=== PATIENT | female | born 1990 | race Two or more races ===

== ENCOUNTER 2016-10-11 04:23 | Inpatient (IN) | payer MEDICAID ==
[2016-10-18] MEDS ORDERED: LACTATED RINGERS 1,000 ML IV PRN (10:08)
[2016-10-18] MEDS ORDERED: DINOPROSTONE 10 MG SUP VG ONE (10:08)
[2016-10-18] MEDS ORDERED: OXYTOCIN IN LR 500 ML IV ONE ×2 (10:08→10:20)
[2016-10-18] MEDS ORDERED: LIDOCAINE 1% (PRES FREE) 30 ML VIAL ONE (10:19)
[2016-10-18] MEDS ORDERED: MINERAL OIL 25 ML BOT ONE (10:19)
[2016-10-18] MEDS ORDERED: IV START KIT ONE (10:19)
[2016-10-18] MEDS ORDERED: OXYTOCIN 10 UNITS/ML VIAL ONE (10:19)
[2016-10-18] MEDS ORDERED: LACTATED RINGERS 1,000 ML ONE (10:19)
[2016-10-18] MEDS ORDERED: LIDOCAINE Viscous 2% 15 ML UDCUP ONE (10:20)
[2016-10-18] MEDS ORDERED: PUMP TUBING ONE (10:20)
[2016-10-18 11:12] LABS: HEMATOCRIT 36.6 % (37.0-47.0); HEMOGLOBIN 12.6 gm/l (12.0-16.0); MEAN CELL VOLUME 80.8 fl (81.0-99.0); MEAN CORPUSCULAR HEMOGLOBIN 27.8 pg (27.0-31.0); MEAN CORPUSCULAR HGB CONC 34.4 g/dl (33.0-37.0); RED CELL DISTRIBUTION WIDTH 13.3 % (11.5-14.5)
[2016-10-18 11:50] VITALS: BMI 26.2
--- NOTE | 2016-10-18 12:31 | PCMAN ---
OB Admission Note - History : 1 Term: 0 : 0 Abortions (S&E): 0 Livin EDC:: 10/11/16 Gestational Age (weeks): 41 Days (#/7): 0 Admit Cervical Dilation:: 1.5 Admit Cervical Effacement (%):: 50 Admit Station:: -3 Admit Presentaton:: vertex Membrane Status: Intact Contractions: Yes Contraction Frequency:: irreg, doesn't feel them Heart Rate:: 135 Status:: Cat I Summary of Course:: 26 yo G1 at 41 0/7 wks here for post dates IOL PNC: started PNC at 10 wks. Dated by 13 wk u/s, c/w 19 and 33 wk u/s. Course notable for S<D, but 33 wk u/s normal 53rd %ile. Had some anemia which improved w Fe. OBHx: n/a PMH: Childhood varicella PSH: none SocHx: neg for tob/etoh/drug use FOB neg for tob/etoh/drug use Immuniz: TdaP 07/25/16 Flu 07/25/16 PainMgmt: considering epidural Feeding: Plans BF BCM: plans Nexplanon - Labs Blood Type: A (+) positive (ab neg) Hct/Hgb:: 11.6 Rubella Status: Immune GBS Status: Negative Abnormal Labs: None Other Labs:: HIV NR HBsAg NR Syphilis neg GC neg Chlam neg Quad normal x 3 - Review of Systems noncontributory - Physical Exam General: Afebrile, No Acute Distress Psych/Mental Status: Mood/Affect Appropriate, Judgment/Insight Intact Neurological: Grossly Intact, Alert, Normal Speech HEENT: Atraumatic, Mucous membr. moist/pink Lungs: Clear to Auscultation Bilaterally Cardiovascular: Regular Rate and Rhythm Genitourinary: Normal Female Genitalia Extremities: Full ROM, No Edema DTR: Bicep (L): 2+ (Brisk, Normal), Bicep (R): 2+ (Brisk, Normal) Skin: Normal Color, Warm, Dry, Intact - Problems (1) Post-dates Qualifiers: Post-term type: 40-42 weeks gestation Qualifier Code: (O48.0 ) Post-term Status: Acute Code: O48.0 Assessment/Plan: 26 yo G1 at 41 0/7 wks Admit for IOL Cervical ripening w ceridil, afterwards if favorable will start pit Pain Mgmt: considering epidural Plans BF
[2016-10-18] MEDS ORDERED: OXYTOCIN IN LR 500 ML IV PRN (23:19)
[2016-10-18] MEDS: LACTATED RINGERS 1,000 ML IV SCH (23:36)
[2016-10-19] MEDS: LACTATED RINGERS 1,000 ML IV SCH ×2 (06:08→20:34)
[2016-10-19] MEDS ORDERED: FENTANYL/ROPIVACAINE EPIDURAL 250 ML EP ONE ×2 (06:52→22:51)
[2016-10-19] MEDS ORDERED: EPIDURAL PUMP SET ONE (06:52)
[2016-10-19] MEDS ORDERED: EPIDURAL PROCEDURE TRAY ONE (07:05)
[2016-10-19] MEDS ORDERED: EPHEDRINE SULFATE 50 MG/ML 1ML VIAL IV PRN (08:39)
[2016-10-19] MEDS ORDERED: LACTATED RINGERS 1,000 ML IV SCH (08:39)
[2016-10-19] MEDS ORDERED: NALBUPHINE HCL 20 MG/ML AMP IV PRN (08:39)
[2016-10-19] MEDS ORDERED: NALOXONE HCL 0.4 MG/ML VIAL IV PRN (08:39)
[2016-10-19] MEDS ORDERED: ONDANSETRON 4 MG/2ML 2 ML VIAL IV PRN ×2 (08:39→16:05)
[2016-10-19] MEDS ORDERED: METOCLOPRAMIDE HCL 5 MG/ML 2ML VIAL IV PRN (08:39)
[2016-10-19] MEDS ORDERED: DIPHENHYDRAMINE HCL 50 MG/1 ML VIAL IV PRN (08:39)
[2016-10-19] MEDS ORDERED: SODIUM CHLORIDE 0.9% 500 ML IV PRN (08:39)
[2016-10-19] MEDS ORDERED: LACTATED RINGERS 500 ML IV PRN (08:39)
--- NOTE | 2016-10-19 16:08 | PDOC36 ---
Provider Note Subject: resting, has epidural O: 99.2 FHT's: 150' s mod STV, and LTV, pos. accels, no decels toco: q 2-3 min SVE 6-7/c/-1 A/P: IUP at term IOL for postdates has been at 6 cm for >4 hours, IUPC is placed, and there is evidence that the UC's are not adequate, increase Pitocin up to 30 MU. FWB overall [id number], cat I
[2016-10-19] MEDS ORDERED: ACETAMINOPHEN 500 MG TABLET PO ONE (17:01)
[2016-10-19] MEDS ORDERED: GENTAMICIN 80MG/100ML PREMIX 100 ML ONE (17:04)
[2016-10-19] MEDS ORDERED: AMPICILLIN SODIUM 2 G VIAL ONE ×2 (17:04→22:34)
[2016-10-19] MEDS ORDERED: NS 0.9% (MINI-BAG PLUS) 100 ML IV ONE ×2 (17:05→22:35)
[2016-10-19] MEDS: AMPICILLIN SODIUM 2 G in NS 0.9% (MINI-BAG PLUS) 100 ML IV SCH ×2 (17:10→23:00)
[2016-10-19] MEDS ORDERED: NS IV SCH (17:30)
[2016-10-19] MEDS ORDERED: GENTAMICIN IV SCH (17:30)
[2016-10-19] MEDS ORDERED: MISOPROSTOL 200 MCG TABLET PR ONE (23:56)
[2016-10-19] MEDS ORDERED: CARBOPROST TROMETH 250 MCG/ML AMP IM ONE (23:56)
[2016-10-19] MEDS ORDERED: MINERAL OIL 25 ML BOT PO ONE (23:56)
[2016-10-20] MEDS ORDERED: CARBOPROST TROMETH 250 MCG/ML AMP IM ONE (00:02)
[2016-10-20] MEDS ORDERED: METHYLERGONOVINE MALEATE 0.2 MG/ML 1ML AMP IM PRN (00:16)
--- NOTE | 2016-10-20 00:22 | PCMDEL ---
Delivery Note - Labor 1st stage (hr/min):: 14 hours and 44 min 2nd stage (hr/min):: 1 hour 31 min 3rd stage (hr/min):: 5 min Total (hr/min):: 15 hours 20 min Pushed (hr/min):: 1 hour 31 min - Delivery Delivery (Date): 10/19/16 Delivery (Time): 23:45 Gender: Female Presentation: Cephalic Umbilical Cord: 3 Vessel Delayed Cord Clamping:: Not Performed 1 Minute Total: 8 5 Minute Total: 9 Placenta:: normal EBL:: 750 ml Perineum:: intact, 2 degree vaginal repaired with 3.0 vicryl Suture:: 3.0 vicryl Anesthesia/Meds:: epidural Length ROM:: 14 hours Comments:: maternal chorio, and uterine atony, responded to vigorous massage, miso 800 mcg pr, methergine IM 0.2 mg, and hemabate, and pitocin.
[2016-10-20] MEDS ORDERED: LANOLIN 50 APPLIC/7G TUBE TP PRN (00:23)
[2016-10-20] MEDS ORDERED: HYDROCODONE/ACETAMINOPHEN 5/325MG TABLET PO PRN (00:23)
[2016-10-20] MEDS ORDERED: BENZOCAINE/MENTHOL 60 APPLIC/BOT TP PRN (00:23)
[2016-10-20] MEDS ORDERED: DOCUSATE SODIUM 100 MG CAPSULE PO PRN (00:23)
[2016-10-20] MEDS: IBUPROFEN 800 MG TABLET PO PRN ×2 (00:55→15:59)
[2016-10-20] MEDS ORDERED: GENTAMICIN 80MG/100ML PREMIX 100 ML ONE ×3 (02:17→18:03)
[2016-10-20] MEDS: GENTAMICIN IV SCH ×3 (02:21→18:26)
[2016-10-20] MEDS: NS IV SCH ×3 (02:21→18:26)
[2016-10-20] MEDS ORDERED: LACTATED RINGERS 2,000 ML ONE (02:23)
[2016-10-20] MEDS ORDERED: PUMP TUBING ONE (02:31)
[2016-10-20] MEDS ORDERED: AMPICILLIN SODIUM 2 G VIAL ONE ×3 (04:49→17:29)
[2016-10-20] MEDS ORDERED: NS 0.9% (MINI-BAG PLUS) 100 ML IV ONE ×3 (04:49→17:29)
[2016-10-20] MEDS: AMPICILLIN SODIUM 2 G in NS 0.9% (MINI-BAG PLUS) 100 ML IV SCH ×3 (04:53→17:41)
[2016-10-20] MEDS ORDERED: FENTANYL/ROPIVACAINE EPIDURAL 250 ML EP SCH (06:00)
--- NOTE | 2016-10-20 09:58 | PDOC44 ---
- Subjective Day: 1 Reports Flatus, Reports Pain Tolerable, Reports , Reports Lochia Moderate, Denies Nausea, Denies Vomiting, Denies Fever - Objective Temp Pulse Resp BP Pulse Ox 97.9 F 83 16 97/53 10/20/16 08:05 10/20/16 08:05 10/20/16 08:05 10/20/16 08:05 Current Medications Generic Name Dose Route Start Last Admin Trade Name Freq PRN Reason Stop Dose Admin Acetaminophen/Hydrocodone Bitart 1 - 2 tab 10/20/16 00:23 10/20/16 02:21 [place] 5/325 PO 1 tab Q4H PRN Administration Pain (Moderate) Benzocaine/Menthol 1 applic 10/20/16 00:23 Dermoplast TP PRN PRN Patient Comfort Docusate Sodium 100 mg 10/20/16 00:23 Colace PO DAILY PRN Comfort Emollient Ointment 1 applic 10/20/16 00:23 Wkh-H-Drtuka TP PRN PRN sore nipples Ampicillin Sodium 2 g/ NS 0.9% 100 mls @ 300 mls/hr 10/20/16 00:30 10/20/16 04: 53 (MINI-BAG PLUS) IV 10/20/16 23:00 300 mls/hr Q6H WILL Administration Gentamicin Sulfate/Sodium 100 mls @ 100 mls/hr 10/20/16 00:30 10/20/16 02:21 Chloride 80 mg/ Sodium IV 10/20/16 23:00 100 mls/hr Chloride Q8H WILL Administration Ibuprofen 800 mg 10/20/16 00:23 10/20/16 00:55 Motrin PO 800 mg Q6H PRN Administration Pain (Mild) Sodium Chloride 10 ml 10/20/16 00:23 Normal Saline 10ml Flush IV PRN PRN IV Flush Sodium Chloride 10 ml 10/20/16 09:00 Normal Saline 10ml Flush IV Q8HR WILL - Physical Exam General: Afebrile, No Acute Distress Psych/Mental Status: Mood/Affect Appropriate, Bonding Well Lungs: Clear to Auscultation Bilaterally Cardiovascular: Regular Rate and Rhythm Fundus: Firm, Midline, At Umbilicus Extremities: No Edema - Problems:Assessment/Plan (1) Vaginal delivery Status: Acute Assessment/Plan: Doing well. Routine care. abx 24 hours. support. (2) Chorioamnionitis, delivered, current hospitalization Status: Acute Assessment/Plan: on abx for 24 hours. Doing well. Disposition: Stable, Anticipate DC Home Tomorrow
[2016-10-21 06:41] LABS: HEMATOCRIT 24.2 % (37.0-47.0); HEMOGLOBIN 8.2 gm/l (12.0-16.0)
--- NOTE | 2016-10-21 08:13 | PDOC44 ---
- Subjective Day: 2 Feeling a little tired overall, no dizziness, no palpitations. Average amount of lochia. Reports Flatus, Reports Pain Tolerable, Reports , Reports Lochia Moderate, Reports Tolerating Regular Diet - Objective Temp Pulse Resp BP Pulse Ox 98.1 F 80 16 110/53 10/21/16 07:54 10/21/16 07:54 10/21/16 07:54 10/21/16 07:54 Lab Results 10/21/16 06:15 Hgb 8.2 L Hct 24.2 L Current Medications Generic Name Dose Route Start Last Admin Trade Name Freq PRN Reason Stop Dose Admin Acetaminophen/Hydrocodone Bitart 1 - 2 tab 10/20/16 00:23 10/20/16 02:21 [place] 5/325 PO 1 tab Q4H PRN Administration Pain (Moderate) Benzocaine/Menthol 1 applic 10/20/16 00:23 Dermoplast TP PRN PRN Patient Comfort Docusate Sodium 100 mg 10/20/16 00:23 Colace PO DAILY PRN Comfort Emollient Ointment 1 applic 10/20/16 00:23 10/20/16 12:36 Nom-B-Kurihx TP 1 tube PRN PRN Administration sore nipples Ibuprofen 800 mg 10/20/16 00:23 10/20/16 15:59 Motrin PO 800 mg Q6H PRN Administration Pain (Mild) Sodium Chloride 10 ml 10/20/16 00:23 10/20/16 17:41 Normal Saline 10ml Flush IV 10 ml PRN PRN Administration IV Flush Sodium Chloride 10 ml 10/20/16 09:00 10/20/16 19:30 Normal Saline 10ml Flush IV 10 ml Q8HR WILL Administration - Physical Exam General: Afebrile, No Acute Distress Psych/Mental Status: Mood/Affect Appropriate, Bonding Well Neurological: Alert, Oriented x 4 Lungs: Clear to Auscultation Bilaterally Cardiovascular: Regular Rate and Rhythm Breast: Nipples Intact Fundus: Firm, Midline Extremities: Full ROM, No Edema, No Tenderness Skin: Normal Color, Warm, Dry, Intact, No Rash - Problems:Assessment/Plan (1) Vaginal delivery Status: Acute Assessment/Plan: PPD 2. Doing well. Nl exam and vitals. S/P abx 24 hours for chorio. +BF. -d/c tomorrow as baby needs 48 hrs abx. (2) Chorioamnionitis, delivered, current hospitalization Status: Acute Assessment/Plan: S/P abx for 24 hours. Doing well and afebrile. (3) Anemia Qualifiers: Anemia type: other cause Status: Acute Assessment/Plan: Due to atony. Had PPH with EBL 800ml and required Pitocin/Methergine/Hemabate/ Misoprostol. Asymptomatic, will be placed on iron supplementation. Disposition: Anticipate DC Home Tomorrow
[2016-10-21] MEDS: IBUPROFEN 800 MG TABLET PO PRN (08:27)
[2016-10-21] MEDS: FERROUS SULFATE (65 Fe) 325 MG TABLET PO SCH ×2 (09:54→23:29)
--- NOTE | 2016-10-21 18:56 | PDOC39B ---
Hospital Course: ADMIT DATE: 10/18/16 DISCHARGE DATE: 10/21/16 ADMISSION DIAGNOSES: Induction of labor for postdates PROCEDURES: Normal Spontaneous Vaginal Delivery HISTORY OF PRESENT ILLNESS/HOSPITAL COURSE: 26 year old G1 T0 L0 at 41 weeks 1 days presented for induction of labor for postdates. During labor she developed chorioamnionitis and was placed on antibiotics. She progressed to a normal spontaneous vaginal delivery. She did have a significant hemorrhage with EBL 800cc and needed to be given Pitocin/Methergine/Misoprostol and Hemabate. Throughout the hemorrhage and in the period she remained hemodynamically stable. By day of discharge the patient is ambulating, eating, voiding, and passing flatus without difficulty. Pain is controlled and lochia is appropriate. She is but also supplementing with formula. - Physical Exam Vital Signs: Temp Pulse Resp BP Pulse Ox 98.1 F 99 16 116/56 10/21/16 14:55 10/21/16 14:55 10/21/16 14:55 10/21/16 14:55 General: Afebrile, No Acute Distress Neurological: Alert, Oriented x 4 Lungs: Clear to Auscultation Bilaterally Cardiovascular: Regular Rate and Rhythm Fundus: Firm, Midline Extremities: Full ROM, No Edema Skin: Normal Color, Warm, Dry, Intact, No Rash - Discharge Diagnosis (1) Vaginal delivery Status: Acute Assessment/Plan: PPD 2. Doing well. Nl exam and vitals. S/P abx 24 hours for chorio. +BF. -will need to d/c mom today as she will have completed 48hrs on L and D, she will room-in with her baby (2) Chorioamnionitis, delivered, current hospitalization Status: Acute Assessment/Plan: S/P abx for 24 hours. Doing well and afebrile. (3) Anemia Qualifiers: Anemia type: other cause Status: Acute Assessment/Plan: Due to atony. Had PPH with EBL 800ml and required Pitocin/Methergine/Hemabate/ Misoprostol. Asymptomatic, will be discharged on iron supplementation and docusate - Discharge Plan Condition: Good Disposition: Home Prescriptions: Docusate Sodium [COLACE 100 MG CAPSULE (SHF)] 100 mg PO BID PRN #60 cap PRN Reason: Constipation Ibuprofen [Motrin] 800 mg PO TID PRN #30 tablet PRN Reason: Pain FERROUS SULFATE (65 Fe) [IRON FERROUS SULFATE 325 MG TABLET (SHF)] 325 mg PO BID #60 tab Follow-Up: Danielle aRngel PA-C [Primary Care Provider] - In 6 weeks
[2016-10-21 21:37] VITALS: BP 120/63
== END 2016-10-21 23:40 | disposition home or self-care (01) | DRG 774 ==
LOC: EDSTATUS 16:29 → UNDOADMIN 10-18 08:33 → FBC 10-18 08:33
PROVIDERS: ADMIT Family Medicine; ATTEND Family Medicine
PROC: 3E033VJ Introduction of Other Hormone into Peripheral Vein, Percutaneous Approach (ICD-10-PCS; 2016-10-18)
PROC: 3E0P7GC Introduction of Other Therapeutic Substance into Female Reproductive, Via Natural or Artificial Opening (ICD-10-PCS; 2016-10-18)
PROC: 10H07YZ Insertion of Other Device into Products of Conception, Via Natural or Artificial Opening (ICD-10-PCS; 2016-10-18)
PROC: 4A1H74Z Monitoring of Products of Conception, Cardiac Electrical Activity, Via Natural or Artificial Opening (ICD-10-PCS; 2016-10-18)
PROC: 10E0XZZ Delivery of Products of Conception, External Approach (ICD-10-PCS; principal; 2016-10-19)
PROC: 0KQM0ZZ Repair Perineum Muscle, Open Approach (ICD-10-PCS; 2016-10-19)
DX: O48.0 Post-term pregnancy (principal); O72.1 Other immediate postpartum hemorrhage; O41.1230 Chorioamnionitis, third trimester, not applicable or unspecified; O71.4 Obstetric high vaginal laceration alone; Z37.0 Single live birth; O99.02 Anemia complicating childbirth; D64.9 Anemia, unspecified; Z3A.41 41 weeks gestation of pregnancy